=== PATIENT | male | born 1960 | race Caucasian/White ===

== ENCOUNTER → 2016-06-11 | Day surgery (SDC) | payer BC, OTHER ==
[2016-05-30 09:12] VITALS: BMI 24.0
--- NOTE | 2016-05-30 10:07 | PAT Medication Instructions ---
Service Date May 30, 2016. Current Home Medication List Alfuzosin Hcl (Uroxatral), 10 MG PO QAM Medication Instructions For Your Scheduled Surgery - Take the following medications the morning of surgery with a sip of water: Alfuzosin Hcl (Uroxatral), 10 MG PO QAM If you have any questions please call us at [phone] or [phone] ( Adriana) or [phone]
[2016-05-30 10:44] LABS: BASO % 0.4 %; BASO ABS # 0.02 K/uL (0-0.2); COMPLETE YES; EOS % 3.2 %; HEMATOCRIT 43.4 % (42-52); IG% 0.2 %; LYMPH ABS # 1.41 K/uL (1.2-3.4); MEAN CELL VOLUME 84.8 fL (80-100); MEAN CORPUSCULAR HEMOGLOBIN 29.9 pg (25-34); MEAN CORPUSCULAR HGB CONC 35.3 g/dl (32-36); MONO % 7.5 %; NEUT % 60.7 %; PLATELET COUNT 216 K/uL (130-400); RED BLOOD COUNT 5.12 M/uL (4.7-6.1); WHITE BLOOD COUNT 5.04 K/uL (4.8-10.8)
--- NOTE | 2016-05-30 10:44 | DIAGNOSTIC IMAGING REPORT ---
CHEST PREADMISSION(PA/LAT) CLINICAL HISTORY: PAT preoperative evaluation COMPARISON STUDY: No previous studies for comparison. FINDINGS: The bones soft tissues and hemidiaphragms are normal. The cardiomediastinal silhouette is normal. The lungs are clear. The pulmonary vasculature is normal. IMPRESSION: Negative chest. Electronically signed by: Polo Kurtz M.D. 05/30/2016 10:43 AM
[2016-05-30 10:49] LABS: URINE APPEARANCE CLEAR (CLEAR); URINE BILIRUBIN NEG (NEG); URINE COLOR YELLOW; URINE NITRITE NEG (NEG); URINE PH 5.5 (4.5-7.5); URINE SPECIFIC GRAVITY 1.018 (1.000-1.030); UROBILINOGEN NEG (NEG)
[2016-05-30 11:11] LABS: MANUAL MICROSCOPIC REQUIRED? NO; REVIEW REQ? NO
[2016-05-30 11:22] LABS: BUN/CREATININE RATIO 23.9 (10-20); CALCIUM 9.2 mg/dl (8.5-10.1); CREATININE 0.84 mg/dl (0.60-1.40); POTASSIUM 3.8 mmol/L (3.5-5.1)
[~2016-06-11] VITALS: Ht 170.2 cm; Wt 71.0 kg
[~2016-06-11] MED LIST: ALFU10TA2 PO; ATROPINE SULFATE 0.1 MG/ML 5ML SYR IV PRN; BELLADONNA/OPIUM SUPP 60 MG SUPP PR ONE; CIPR-255 PO; CIPROFLOXACIN / D5W 400 MG IV SCH; DEXAMETHASONE SOD INJ 4 MG/ML VIAL ONE; EpHEDrine SULFATE INJ 50 MG/ML AMP IV PRN; FENTANYL CITRATE INJ 50 MCG/1 ML 2 ML VIAL IV PRN; FENTANYL CITRATE INJ 50 MCG/1 ML 2 ML VIAL ONE; LACTATED RINGER'S 1000ML 500 ML IV ONE; LIDOCAINE HCL 2% 2 ML VIAL (20MG/ML) ONE; MIDAZOLAM HCL 1 MG/ML 2ML VIAL ONE; ONDANSETRON INJ 2 MG/ML 2 ML VIAL IV PRN; ONDANSETRON INJ 2 MG/ML 2 ML VIAL ONE; OXYC7.5T65 PO; OXYCODONE/ACETAMINOPHEN 5-325 TAB PO PRN; PHEN-775 PO; PHENAZOPYRIDINE HCL 200 MG TAB PO PRN; PROPOFOL IV EMULSION 10 MG/ML 20 ML VIAL IV ONE
[2016-06-11 05:40] VITALS: BP 130/72; PULSE 74; TEMP 36.5; O2SAT 99; Ht 170.2 cm; Wt 71.0 kg
--- NOTE | 2016-06-11 07:09 | History & Physical Bridge Note ---
H&P Re-Evaluation Bridge Note: I have examined the patient, reviewed the History & Physical and in the interval since the performance of the History & Physical I have noted the following changes of clinical significance: No changes noted
--- NOTE | 2016-06-11 08:25 | Discharge Instructions ---
Discharge Instructions Admission Reason for Admission: Bladder Stone, Benign Prostatic Hyperplasia Discharge Discharge Diagnosis / Problem: BPH s/p TURP Discharge Goals Goal(s): Improve function, Improve disease control, Therapeutic intervention Activity Recommendations Activity Limitations: per Instructions/Follow-up section Lifting Limitations: no more than 25 pounds Exercise/Sports Limitations: gradually increase as tolerated (light activity x 5 days) May Resume Sexual Activity: after two weeks Shower/Bathe: may shower/bathe in 3 days (no tub bath) Driving or Machine Use: resume 3 days after discharge Perez to gravity as instructed . Discharge Diet Recommended Diet: Regular Diet (good fluid intake) Procedures Procedures Performed: Extraction Bladder Stone, Bipolar Transurethral Resection Prostate Pending Studies Studies pending at discharge: yes List of pending studies: Prostate pathology Medical Emergencies . Who to Call and When: Medical Emergencies: If at any time you feel your situation is an emergency, please call 911 immediately. . Non-Emergent Contact Non-Emergency issues call your: Urologist Call Non-Emergent contact if: you have a fever, temperature is above 101, your pain is not controlled, your pain is worsening, your pain is concerning you, wound has increased redness, wound has increased pain . . "Provider Documentation" section prepared by Braulio Ware. VTE Core Measure Inpt VTE Proph given/why not?: SCD's [place] Drug Monitoring Program Search Results: patient reviewed within database, no issues identified
--- NOTE | 2016-06-11 08:27 | [facility] Post Operative Brief Note ---
Immediate Operative Summary Operative Date Jun 11, 2016. Pre-Operative Diagnosis Bladder stones and benign prostatic hypertrophy Post-Operative Diagnosis Same as pre-operative diagnosis Procedure(s) Performed Extraction Bladder Stone, Bipolar Transurethral Resection Prostate Surgeon Dr. Braulio Ware Glassware Finisher Surgeon(s) None Estimated Blood Loss 10ml Findings Median lobe resected, lateral lobes spared, trabeculated bladder Specimens A: Bladder stones for chemical analysis B: Prostate Chips Drains 20 fr 10 cc H2O mark Anesthesia GALMA Complication(s) None Disposition Recovery Room / PACU
--- NOTE | 2016-06-11 08:51 | OPERATIVE REPORT ---
DATE OF OPERATION: 06/11/2016 PREOPERATIVE DIAGNOSIS: Refractory benign prostatic hypertrophy with bladder stones. POSTOPERATIVE DIAGNOSIS: Same. PROCEDURE: Extraction of bladder stones, bipolar transurethral resection and vaporization of the prostate gland. SURGEON: Dr. Braulio Ware. CANCER REGISTRY COORDINATOR: None. ANESTHESIA: General anesthesia with laryngeal mask. COMPLICATIONS: None. SPECIMENS SENT TO PATHOLOGY: Bladder stones for chemical analysis and prostate chips for pathology. DRAINS LEFT IN PLACE: Include a 20-Nigerien Perez catheter to gravity drainage with 10 mL of sterile water in the balloon. ESTIMATED BLOOD LOSS: Minimal. FINDINGS: Open prostatic fossa after completion of case, trabeculated bladder. COMPLICATIONS: None. BRIEF HISTORY OF PRESENT ILLNESS: Mr. Meyer is a 56-year-old male who I have seen as an outpatient for history of refractory voiding symptoms and urinary retention. He has undergone a trial of medical therapy with persistent symptoms. Office cystoscopy demonstrated an enlarged prostate with trilobar hypertrophy and a significant bladder neck obstruction. A trabeculated bladder with a mobile bladder stone was appreciated. Please see H\T\P for further details. After discussion of risks and benefits of various forms of management, the patient has decided upon TURP to manage his disease. Seeing his concern about sexual and ejaculatory function, the lateral lobes will be spared in hopes of preserving ejaculation. Intravenous ciprofloxacin provided for antibiotic coverage and SCDs used for DVT prophylaxis. DESCRIPTION OF PROCEDURE: The patient was properly identified and brought to the operative suite. After identification of appropriate consent on the chart, general anesthesia with laryngeal mask was initiated and the patient was prepped and draped in standard fashion for this procedure. center punch operator-out procedure was followed. A 24-Nigerien resectoscope was advanced into the bladder under direct visualization using a visual obturator demonstrating an unremarkable urethra, enlarged prostate with lateral and median lobe hypertrophy as appreciated previously and a trabeculated bladder with mobile stones. Stones were small enough that they were able to be flushed through the scope without the need for laser ablation. No intravesical lesions, papillary masses or mucosal changes were appreciated. Ureteral orifices were identified and noted to be well removed from the bladder neck. Using a bipolar loop, the median bar of the prostate was resected down to the level of the bladder neck. Prostatic chips were irrigated free and sent for pathologic analysis. A bipolar button was used to vaporize and coagulate additional tissue until a well opened bladder neck was noted. Relaxing incisions were made using the button at the 5 and 7 o'clock position to avoid a bladder neck contracture in the future. [place] of the prostate and lateral lobes was spared. Excellent hemostasis and an unobstructed prostate gland was appreciated. No evidence of intravesical injury or injury to the ureteral orifices was noted. Bladder was partially distended and resectoscope was removed. A 20-Nigerien Perez catheter was placed with 10 mL of sterile water in the balloon and return of clear yellow drainage. This was flushed with a Kelsie syringe with isovolumic return. Catheter was placed to gravity drainage. Belladonna and opium suppository was provided for postoperative analgesia. Anesthesia was reversed. The patient was transferred to recovery room in stable condition. FOLLOWUP CARE: The patient will be discharged home with a prescription for ciprofloxacin, Percocet, and Pyridium. Outpatient trial of void is confirmed. He is instructed to contact our office should he note any fevers, chills, nausea, vomiting or other significant difficulties in the postoperative period. I attest to the content of the Intraoperative Record and any orders documented therein. Any exceptio ns are noted below.
--- NOTE | 2016-06-11 09:24 | Anesthesiology Progress Note ---
Anesthesia Post Op Note Date & Time Jun 11, 2016 at 09:22 Vital Signs Pain Intensity: 0 Vital Signs Past 12 Hours Date Time Temp Pulse Resp B/P Pulse Ox O2 Delivery O2 Flow Rate FiO2 06/11/16 09:13 105/74 06/11/16 09:10 78 15 98 06/11/16 09:10 77 15 06/11/16 09:08 109/77 06/11/16 09:05 69 13 06/11/16 09:05 68 13 98 06/11/16 09:04 110/68 06/11/16 09:01 36.7 76 16 110/68 98 Nasal Cannula 06/11/16 09:00 72 12 06/11/16 09:00 72 12 97 06/11/16 08:58 103/69 06/11/16 08:55 75 13 96 06/11/16 08:55 75 13 06/11/16 08:53 113/71 06/11/16 08:50 76 13 06/11/16 08:50 77 13 98 06/11/16 08:48 100/71 06/11/16 08:45 72 13 97 06/11/16 08:45 71 13 06/11/16 08:44 74 11 06/11/16 08:44 76 11 111/71 97 06/11/16 08:39 76 13 102/64 96 06/11/16 08:39 77 13 06/11/16 08:34 79 14 06/11/16 08:34 78 14 93 06/11/16 08:29 87 25 06/11/16 08:29 85 25 98 06/11/16 08:28 108/75 06/11/16 08:24 87 20 96 06/11/16 08:24 36.7 89 16 101/81 97 Mask 10 06/11/16 08:24 91 20 06/11/16 05:40 36.5 74 18 130/72 99 Room Air Notes Mental Status: alert / awake / arousable, participated in evaluation Pt Amnestic to Procedure: Yes Nausea / Vomiting: adequately controlled Pain: adequately controlled Airway Patency, RR, SpO2: stable & adequate BP & HR: stable & adequate Hydration State: stable & adequate Anesthetic Complications: no major complications apparent
[2016-06-11 09:25] VITALS: BP 113/76; PULSE 70; TEMP 36.8; O2SAT 98
[2016-06-11 09:55] VITALS: BP 112/71; PULSE 79; TEMP 36.8; O2SAT 97
== END | disposition home or self-care (01) ==
LOC: C.ACU 05:29
PROVIDERS: ATTEND Urology
DX: N40.1 Benign prostatic hyperplasia with lower urinary tract symptoms (principal); N21.0 Calculus in bladder; N13.8 Other obstructive and reflux uropathy; N41.1 Chronic prostatitis; N48.6 Induration penis plastica; Z82.49 Family history of ischemic heart disease and other diseases of the circulatory system; Z80.51 Family history of malignant neoplasm of kidney; Z68.24 Body mass index [BMI] 24.0-24.9, adult

== ENCOUNTER → 2016-06-27 | Outpatient (CLI) | payer BC ==
[~2016-06-27] MED LIST changes: -ALFU10TA2 PO; +ALFU10TA30 PO; -ATROPINE SULFATE 0.1 MG/ML 5ML SYR IV PRN; -BELLADONNA/OPIUM SUPP 60 MG SUPP PR ONE; -CIPROFLOXACIN / D5W 400 MG IV SCH; -DEXAMETHASONE SOD INJ 4 MG/ML VIAL ONE; -EpHEDrine SULFATE INJ 50 MG/ML AMP IV PRN; -FENTANYL CITRATE INJ 50 MCG/1 ML 2 ML VIAL IV PRN; -FENTANYL CITRATE INJ 50 MCG/1 ML 2 ML VIAL ONE; -LACTATED RINGER'S 1000ML 500 ML IV ONE; -LIDOCAINE HCL 2% 2 ML VIAL (20MG/ML) ONE; -MIDAZOLAM HCL 1 MG/ML 2ML VIAL ONE; -ONDANSETRON INJ 2 MG/ML 2 ML VIAL IV PRN; -ONDANSETRON INJ 2 MG/ML 2 ML VIAL ONE; -OXYCODONE/ACETAMINOPHEN 5-325 TAB PO PRN; -PHEN-775 PO; -PHENAZOPYRIDINE HCL 200 MG TAB PO PRN; -PROPOFOL IV EMULSION 10 MG/ML 20 ML VIAL IV ONE
== END | disposition home or self-care (01) ==
LOC: C.LABSPEC 11:09
PROVIDERS: ATTEND Urology
DX: N40.1 Benign prostatic hyperplasia with lower urinary tract symptoms (principal); R33.9 Retention of urine, unspecified; N21.0 Calculus in bladder